=== PATIENT | female | born 1995 | race Caucasian/White ===

== ENCOUNTER 2021-10-13 17:09 | Inpatient (IN) | payer OTHER, SELFPAY ==
[~2021-10-13 17:09] MED LIST: Iopamidol-370 76% 500 ML 1 ML ONE
[2021-10-13] MEDS ORDERED: Boostrix 0.5 ML (Tdap) VIAL ONE (17:14)
[2021-10-13] MEDS ORDERED: Fentanyl 100 MCG/2 ML VIAL ONE (17:20)
[2021-10-13] MEDS ORDERED: Ondansetron PF 4 MG/2 ML Vial ONE (17:20)
[2021-10-13 17:33] LABS: BHCG - Serum Negative (NEGATIVE); Pregs Control Background? CLEAR/WHITE (CLR/WHITE); Pregs Control Bar Appear? YES (CONTROL BAR)
[2021-10-13 17:38] LABS: #Eosinphils 0.2 thou/uL (0.0-0.7); #Lymphocytes 1.8 thou/uL (1.20-3.40); #Monocytes 0.5 thou/uL (0.11-0.59); #Neutrophils 4.5 thou/uL (1.40-6.50); %Basophils 0.6 % (0.0-1.0); %Eosinophils 2.6 % (0.0-10.0); %Lymphocytes 25.3 % (21.0-51.0); %Monocytes 7.7 % (0.0-10.0); %Neutrophils 63.8 % (42.0-75.0); Hemoglobin 14.2 g/dL (12.0-16.0); Mean Corpuscular HGB CONC 35.9 g/dL (32.0-36.0); Mean Corpuscular Hemoglobin 32.3 pg (27.0-31.0); Mean Corpuscular Volume 89.8 fL (78.0-98.0); Platelet Count 212 thou/uL (130-400); RBC Distribution Width 11.7 % (11.5-14.5); Red Blood Cell (RBC) Count 4.41 mill/uL (4.20-5.40)
[2021-10-13 17:50] LABS: Acetaminophen Less than 10.0 mcg/mL (10.0-30.0); Alcohol Less than 10 mg/dL (Less than 10); Salicylate Less than 8.0 mg/dL (15.0-30.0)
[2021-10-13 17:51] LABS: ALT (SGPT) 27 U/L (8-55); AST (SGOT) 54 U/L (5-34); Albumin 3.9 g/dL (3.5-5.0); Alkaline Phosphatase 37 U/L (40-110); Anion Gap 13 mmol/L (10-20); BUN (Urea Nitrogen) 9 mg/dL (7.0-18.7); Bilirubin, Total 0.8 mg/dL (0.2-1.2); Calc. Creatinine Clearance 0 mL/min (70-130); Calcium 8.6 mg/dL (7.8-10.44); Carbon Dioxide 19 mmol/L (22-29); Chloride 112 mmol/L (98-107); Globulin 2.1 g/dL (2.4-3.5); Glucose 91 mg/dL (70-105); Potassium 3.1 mmol/L (3.5-5.1); Sodium 141 mmol/L (136-145)
[2021-10-13] MEDS ORDERED: Morphine 2 MG/ML VIAL SLOW IVP PRN (18:25)
[2021-10-13] MEDS ORDERED: Ondansetron PF 4 MG/2 ML Vial IVP PRN (18:25)
[2021-10-13] MEDS ORDERED: hydrALAZINE 20 MG/ML VIAL SLOW IVP PRN (18:25)
[2021-10-13] MEDS ORDERED: Promethazine HCl 25 MG/ML VIAL IM PRN (18:25)
[2021-10-13] MEDS ORDERED: traMADol HCl 50 MG TAB PO PRN (18:28)
[2021-10-13] MEDS ORDERED: Cyclobenzaprine 10 MG TAB PO PRN (18:28)
[2021-10-13] MEDS ORDERED: Potassium Phosphate 30 MMOL in Sodium Chloride 0.9% 250 ML 250 ML IVPB SCH (19:30)
[2021-10-13] MEDS ORDERED: Ketorolac Tromethamine 30 MG/ML VIAL IVP SCH (20:15)
[2021-10-13 22:15] VITALS: BMI 22.7
[2021-10-13] MEDS: Sodium Chloride 0.9% 1,000 ML IV SCH (23:17)
[2021-10-13] MEDS: Acetaminophen 500 MG TAB PO SCH (23:22)
[2021-10-13] MEDS: Gabapentin 300 MG CAP PO SCH (23:23)
[2021-10-13] MEDS: Senokot S 8.6-50 MG TAB PO SCH (23:23)
[2021-10-14] MEDS: Ketorolac Tromethamine 30 MG/ML VIAL IVP SCH ×2 (01:29→05:52)
[2021-10-14] MEDS: traMADol HCl 50 MG TAB PO SCH ×4 (01:29→17:51)
[2021-10-14] MEDS: Acetaminophen 500 MG TAB PO SCH ×4 (02:11→17:51)
[2021-10-14] MEDS: Sodium Chloride 0.9% 1,000 ML IV SCH (05:53)
[2021-10-14] MEDS: Gabapentin 300 MG CAP PO SCH (08:17)
[2021-10-14] MEDS: Senokot S 8.6-50 MG TAB PO SCH ×2 (08:18→20:58)
[2021-10-14] MEDS: Polyethylene Glycol 3350 17 GM Packet PO SCH (08:18)
[2021-10-14 09:19] LABS: Anion Gap 11 mmol/L (10-20); BUN (Urea Nitrogen) 6 mg/dL (7.0-18.7); Calc. Creatinine Clearance 116 mL/min (70-130); Calcium 8.4 mg/dL (7.8-10.44); Carbon Dioxide 22 mmol/L (22-29); Chloride 113 mmol/L (98-107); Glucose 105 mg/dL (70-105); Phosphorus 4.2 mg/dL (2.3-4.7); Potassium 3.9 mmol/L (3.5-5.1); Sodium 142 mmol/L (136-145)
[2021-10-14 09:44] LABS: #Eosinphils 0.2 thou/uL (0.0-0.7); #Lymphocytes 1.4 thou/uL (1.20-3.40); #Monocytes 0.6 thou/uL (0.11-0.59); #Neutrophils 5.8 thou/uL (1.40-6.50); %Basophils 0.5 % (0.0-1.0); %Eosinophils 2.7 % (0.0-10.0); %Lymphocytes 17.2 % (21.0-51.0); %Monocytes 7.5 % (0.0-10.0); %Neutrophils 72.1 % (42.0-75.0); Hemoglobin 13.3 g/dL (12.0-16.0); Mean Corpuscular HGB CONC 33.6 g/dL (32.0-36.0); Mean Corpuscular Hemoglobin 31.2 pg (27.0-31.0); Mean Corpuscular Volume 92.9 fL (78.0-98.0); Mean Platelet Volume 9.3 fL (7.4-10.4); Platelet Count 159 thou/uL (130-400); Red Blood Cell (RBC) Count 4.25 mill/uL (4.20-5.40)
[2021-10-14] MEDS ORDERED: Ibuprofen 200 MG TAB PO SCH (10:45)
[2021-10-14 13:38] LABS: SARS-CoV-2 PCR by NAA Not Detected (NotDetected)
[2021-10-14] MEDS: Gabapentin 100 MG CAP PO SCH ×2 (13:59→20:56)
[2021-10-14] MEDS: Ibuprofen 200 MG TAB PO SCH (20:55)
[2021-10-15] MEDS: Acetaminophen 500 MG TAB PO SCH ×3 (00:11→12:42)
[2021-10-15] MEDS: traMADol HCl 50 MG TAB PO SCH ×3 (00:11→12:43)
[2021-10-15] MEDS: Ibuprofen 200 MG TAB PO SCH ×2 (06:13→13:46)
[2021-10-15] MEDS ORDERED: Enoxaparin Sodium 40 MG/0.4 ML SYRINGE SC SCH (09:00)
[2021-10-15] MEDS: Gabapentin 100 MG CAP PO SCH ×2 (09:38→15:36)
[2021-10-15] MEDS: Senokot S 8.6-50 MG TAB PO SCH (09:39)
[2021-10-15] MEDS: Polyethylene Glycol 3350 17 GM Packet PO SCH (09:41)
[2021-10-15 16:06] VITALS: BP 85/49; TEMP 98.4
== END 2021-10-15 17:39 | disposition home or self-care (01) | DRG 552 ==
LOC: ERS 17:09 → SURG A 18:25
PROVIDERS: ADMIT Specialist; ATTEND Surgery
DX: S32.010A Wedge compression fracture of first lumbar vertebra, initial encounter for closed fracture (principal); Z20.822 Contact with and (suspected) exposure to COVID-19; E87.6 Hypokalemia; R20.2 Paresthesia of skin; Z23 Encounter for immunization; V47.6XXA Car passenger injured in collision with fixed or stationary object in traffic accident, initial encounter
CPT/HCPCS: 70450; 70486; 70496; 70498; 71045; 71260; 72125; 72141; 74177; 80048; 80053; 80307; 83735; 84100; 84703; 85025; 90471; 90715; 96374; 96375; G0390; J1650; J1885; J2405; J3010; J7050; Q9967; U0003; U0005